=== PATIENT | male | born 1970 | race Caucasian/White ===

== ENCOUNTER 2020-11-10 11:10 | Emergency (ER) | payer OTHER ==
[2020-11-10] MEDS ORDERED: IBUPROFEN800 MG PO (12:30)
== END 2020-11-10 12:32 | disposition home or self-care (01) ==
LOC: FER 11:10
DX: K40.90 Unilateral inguinal hernia, without obstruction or gangrene, not specified as recurrent (principal); I10 Essential (primary) hypertension; Z87.891 Personal history of nicotine dependence
CPT/HCPCS: 99283